=== PATIENT | female | born 1985 | race Hispanic/Latino ===

== ENCOUNTER 2018-09-30 10:15 | Inpatient (IN) | payer OTHER ==
[2018-09-30 11:08] VITALS: BMI 42.0
[2018-09-30] MEDS ORDERED: Calcium Gluc 4.6 MEQ/10 ML (100 MG/ML) SLOW IVP PRN (11:14)
[2018-09-30 12:27] LABS: #Eosinphils 0.2 thou/uL (0.0-0.7); #Lymphocytes 2.5 thou/uL (1.20-3.40); #Monocytes 0.7 thou/uL (0.11-0.59); #Neutrophils 7.9 thou/uL (1.40-6.50); %Basophils 0.2 % (0.0-1.0); %Eosinophils 1.8 % (0.0-10.0); %Lymphocytes 22.4 % (21.0-51.0); %Monocytes 6.1 % (0.0-10.0); %Neutrophils 69.6 % (42.0-75.0); Hemoglobin 13.1 g/dL (12.0-16.0); Mean Corpuscular HGB CONC 33.5 g/dL (32.0-36.0); Mean Corpuscular Hemoglobin 30.2 pg (27.0-31.0); Mean Corpuscular Volume 90.2 fL (78.0-98.0); Mean Platelet Volume 8.9 fL (7.4-10.4); Platelet Count 197 thou/uL (130-400); RBC Distribution Width 13.2 % (11.5-14.5); Red Blood Cell (RBC) Count 4.34 mill/uL (4.20-5.40); White Blood Cell (WBC) Count 11.3 thou/uL (4.8-10.8)
[2018-09-30 12:50] LABS: ALT (SGPT) 34 U/L (8-55); AST (SGOT) 41 U/L (5-34)
[2018-09-30] MEDS ORDERED: NIFEdipine XL 30 MG TAB PO SCH (13:30)
[2018-09-30] MEDS ORDERED: Labetalol 100 MG TAB PO SCH (16:00)
[2018-09-30] MEDS ORDERED: HumaLOG 300 UNITS/3 ML VIAL SC SCH (17:00)
[2018-09-30] MEDS ORDERED: NIFEdipine 10 MG CAP PO PRN (17:57)
[2018-09-30] MEDS ORDERED: Promethazine HCl 25 MG/ML VIAL IM PRN (18:07)
[2018-09-30] MEDS ORDERED: Ondansetron PF 4 MG/2 ML Vial IVP PRN (18:07)
[2018-09-30] MEDS ORDERED: Lactated Ringer's 1,000 ML IV SCH (18:15)
[2018-09-30 18:38] LABS: Hemoglobin 12.4 g/dL (12.0-16.0); Mean Corpuscular HGB CONC 34.3 g/dL (32.0-36.0); Mean Corpuscular Hemoglobin 31.1 pg (27.0-31.0); Mean Corpuscular Volume 90.5 fL (78.0-98.0); Platelet Count 176 thou/uL (130-400); RBC Distribution Width 13.2 % (11.5-14.5); Red Blood Cell (RBC) Count 3.99 mill/uL (4.20-5.40); White Blood Cell (WBC) Count 10.7 thou/uL (4.8-10.8)
[2018-09-30 19:18] LABS: HBSAg Index 0.23 S/CO (0-0.99); Hep B Surf Ag Non-Reactive S/CO (NonReactive); Syphilis Antibody Nonreactive (Nonreactive); Syphilis Antibody Index 0.04 S/CO (<1.00 Non-Reactive)
[2018-09-30] MEDS ORDERED: Insulin Glargine 60 UNITS in Pre-Filled Syringe 1 EACH SC SCH (21:00)
[2018-09-30] MEDS: HumaLOG 300 UNITS/3 ML VIAL SC SCH (21:30)
[2018-10-01] MEDS: Acetaminophen 325 MG TAB PO PRN ×2 (02:12→08:53)
[2018-10-01] MEDS ORDERED: NPH, Human Insulin Isophane 300 UNIT/3 ML VIAL SC SCH (07:30)
[2018-10-01] MEDS ORDERED: Insulin Glargine 65 UNITS in Pre-Filled Syringe 1 EACH SC SCH (09:00)
[2018-10-01] MEDS ORDERED: NIFEdipine XL 30 MG TAB PO SCH (09:00)
[2018-10-01] MEDS: HumaLOG 300 UNITS/3 ML VIAL SC SCH ×2 (09:29→20:02)
[2018-10-01] MEDS ORDERED: Dextrose 5%-Lactated Ringers 1,000 ML IV PRN (10:12)
[2018-10-01] MEDS ORDERED: Ketorolac Tromethamine 30 MG/ML VIAL ONE ×2 (11:43→15:55)
[2018-10-01] MEDS ORDERED: Ondansetron PF 4 MG/2 ML Vial ONE ×2 (11:43→15:55)
[2018-10-01] MEDS ORDERED: PHENYLEPHRINE-NS 100 MCG/ML 10 ML SYRINGE ONE ×2 (11:43→15:55)
[2018-10-01] MEDS: Hydrocortisone 1% Cream 30 GM TUBE TOP PRN ×2 (12:30→14:22)
[2018-10-01] MEDS ORDERED: CEFAZOLIN 2 GM/50 ML BAG ONE (15:30)
[2018-10-01] MEDS ORDERED: Bicitra 30 ML UDCUP ONE (15:30)
[2018-10-01] MEDS ORDERED: Morphine PF 1 MG/ML SYR ONE (15:55)
[2018-10-01] MEDS ORDERED: Bupivacaine 0.75% W/DEXTROSE 8.25% 2 ML AMP ONE (15:55)
[2018-10-01] MEDS ORDERED: Oxytocin 10 UNITS/ML VIAL ONE ×3 (15:56→17:27)
[2018-10-01] MEDS ORDERED: Lidocaine 2% 10 ML INJ ONE (15:58)
[2018-10-01] MEDS ORDERED: Dextrose 50% Abboject 50 ML SYRINGE ONE (15:58)
[2018-10-01] MEDS ORDERED: Dextrose 50% Abboject 50 ML SYRINGE SLOW IVP PRN ×2 (16:12→18:49)
[2018-10-01] MEDS ORDERED: L&D-Morphine 4 MG/ML VIAL SLOW IVP PRN (18:29)
[2018-10-01] MEDS ORDERED: HYDROmorphone 2 MG/ML VIAL SLOW IVP PRN (18:29)
[2018-10-01] MEDS ORDERED: Naloxone HCl 0.4 mg/ml Vial IV PRN (18:29)
[2018-10-01] MEDS ORDERED: Hydrocerin (Eucerin) Cream 120 gm Jar TOP PRN (18:29)
[2018-10-01] MEDS ORDERED: diphenhydrAMINE 50 MG/ML VIAL IVP PRN (18:29)
[2018-10-01] MEDS ORDERED: Ondansetron PF 4 MG/2 ML Vial IVP PRN ×2 (18:29→18:49)
[2018-10-01] MEDS ORDERED: Ketorolac Tromethamine 30 MG/ML VIAL IVP PRN (18:29)
[2018-10-01] MEDS ORDERED: Naloxone HCl 0.4 mg/ml Vial IVP PRN ×2 (18:29)
[2018-10-01] MEDS ORDERED: Meperidine HCl/PF 25 MG/ML VIAL SLOW IVP PRN (18:29)
[2018-10-01] MEDS ORDERED: Promethazine HCl 25 MG/ML VIAL IM PRN ×2 (18:29→18:49)
[2018-10-01] MEDS ORDERED: Ondansetron HCl/PF 4 MG/2 ML Vial IVP PRN (18:29)
[2018-10-01] MEDS ORDERED: Promethazine HCl 25 MG SUPP PR PRN (18:29)
[2018-10-01] MEDS ORDERED: Ketorolac Tromethamine 30 MG/ML VIAL IVP SCH (18:30)
[2018-10-01] MEDS ORDERED: Communication Order-Pharmacy FS SCH (18:30)
[2018-10-01] MEDS ORDERED: Lanolin Ointment 7 GM TUBE TOP PRN (18:49)
[2018-10-01] MEDS ORDERED: Adacel (T-DAP) 0.5 ML VIAL IM ONE (18:49)
[2018-10-01] MEDS ORDERED: diphenhydrAMINE 25 MG CAP PO PRN (18:49)
[2018-10-01] MEDS ORDERED: Dextrose 5% in Water 1,000 ML IV PRN (18:49)
[2018-10-01] MEDS ORDERED: Measles/Mumps/Rubella 10 MCG/0.5 ML VIAL SC ONE (18:49)
[2018-10-01] MEDS ORDERED: NS / Oxytocin 40 units/1000ml 1,000 ML IV SCH (19:00)
[2018-10-01] MEDS ORDERED: Meperidine HCl/PF 25 MG/ML VIAL ONE (20:25)
[2018-10-01] MEDS ORDERED: NIFEdipine 10 MG CAP ONE (20:26)
[2018-10-01] MEDS ORDERED: NIFEdipine 10 MG CAP PO SCH (20:30)
[2018-10-01] MEDS ORDERED: Labetalol 100 MG TAB PO SCH (22:30)
[2018-10-01] MEDS ORDERED: Dextrose 5 %-0.45 % NaCl 1,000 ML IV SCH (22:30)
[2018-10-01] MEDS: Insulin Glargine 30 UNITS in Pre-Filled Syringe SC SCH (22:36)
[2018-10-01] MEDS: Simethicone Chewable 80 MG TAB PO PRN (22:37)
[2018-10-01] MEDS: Docusate Calcium (SURFAK) 240 MG CAP PO SCH (22:38)
[2018-10-01] MEDS: Preparation H HC 1% Cream 26 GM TUBE TOP SCH (22:40)
[2018-10-01] MEDS: Ferrous Sulfate 325 MG TAB PO SCH (23:32)
[2018-10-02] MEDS ORDERED: Labetalol 100 MG TAB PO SCH (06:00)
[2018-10-02] MEDS ORDERED: Lactated Ringer's 500 ML IV SCH ×3 (06:30→07:00)
[2018-10-02] MEDS: Insulin Glargine 40 UNITS in Pre-Filled Syringe SC SCH (08:27)
[2018-10-02] MEDS: NIFEdipine XL 30 MG TAB PO SCH (08:28)
[2018-10-02] MEDS: Ferrous Sulfate 325 MG TAB PO SCH ×2 (08:28→21:43)
[2018-10-02] MEDS: Docusate Calcium (SURFAK) 240 MG CAP PO SCH ×2 (08:28→21:32)
[2018-10-02] MEDS: Prenatal Vitamin 1 TAB PO SCH (08:28)
[2018-10-02] MEDS: Preparation H HC 1% Cream 26 GM TUBE TOP SCH ×2 (08:29→21:57)
[2018-10-02] MEDS: HumaLOG 300 UNITS/3 ML VIAL SC SCH ×4 (09:04→18:20)
[2018-10-02] MEDS: HYDROcodone/Acetaminophen 5/325 mg Tablet PO PRN ×2 (10:40→18:18)
--- NOTE | 2018-10-02 11:37 | PRG ---
DATE OF PROCEDURE: 10/01/2018 I served as first line supervisor to a primary for Erika Zamorano, # is [id number]. PRIMARY SURGEON: Gauri Addison M.D. Please refer to her operative note for complete details.
[2018-10-02] MEDS: Ibuprofen 800 MG TAB PO SCH ×2 (14:26→21:32)
[2018-10-02] MEDS: Simethicone Chewable 80 MG TAB PO PRN (15:49)
[2018-10-02] MEDS: Insulin Glargine 30 UNITS in Pre-Filled Syringe SC SCH (21:32)
[2018-10-03] MEDS: HYDROcodone/Acetaminophen 5/325 mg Tablet PO PRN ×2 (05:27→21:00)
[2018-10-03] MEDS: Ibuprofen 800 MG TAB PO SCH ×3 (05:58→21:00)
[2018-10-03] MEDS: Ferrous Sulfate 325 MG TAB PO SCH ×2 (08:14→23:12)
[2018-10-03] MEDS: NIFEdipine XL 30 MG TAB PO SCH (08:41)
[2018-10-03] MEDS: Preparation H HC 1% Cream 26 GM TUBE TOP SCH ×2 (08:42→21:01)
[2018-10-03] MEDS: Prenatal Vitamin 1 TAB PO SCH (08:42)
[2018-10-03] MEDS: Docusate Calcium (SURFAK) 240 MG CAP PO SCH ×2 (08:42→20:59)
[2018-10-03] MEDS: HumaLOG 300 UNITS/3 ML VIAL SC SCH ×3 (08:42→18:00)
[2018-10-03] MEDS: Insulin Glargine 40 UNITS in Pre-Filled Syringe SC SCH (08:43)
[2018-10-03] MEDS ORDERED: HumaLOG 300 UNITS/3 ML VIAL SC SCH (20:45)
[2018-10-03] MEDS: Insulin Glargine 30 UNITS in Pre-Filled Syringe SC SCH (20:58)
[2018-10-03] MEDS: Simethicone Chewable 80 MG TAB PO PRN (20:59)
[2018-10-04] MEDS: HYDROcodone/Acetaminophen 5/325 mg Tablet PO PRN ×3 (03:18→23:11)
[2018-10-04] MEDS: Ibuprofen 800 MG TAB PO SCH ×3 (05:44→21:35)
[2018-10-04] MEDS: Prenatal Vitamin 1 TAB PO SCH (08:37)
[2018-10-04] MEDS: HumaLOG 300 UNITS/3 ML VIAL SC SCH ×3 (08:37→19:21)
[2018-10-04] MEDS: NIFEdipine XL 30 MG TAB PO SCH (08:37)
[2018-10-04] MEDS: Docusate Calcium (SURFAK) 240 MG CAP PO SCH ×2 (08:37→21:34)
[2018-10-04] MEDS: Preparation H HC 1% Cream 26 GM TUBE TOP SCH ×2 (08:38→21:41)
[2018-10-04] MEDS: Insulin Glargine 40 UNITS in Pre-Filled Syringe SC SCH (08:38)
[2018-10-04] MEDS ORDERED: Labetalol 100 MG TAB PO SCH (09:00)
[2018-10-04] MEDS: Ferrous Sulfate 325 MG TAB PO SCH ×2 (09:14→23:19)
[2018-10-04] MEDS: Simethicone Chewable 80 MG TAB PO PRN (14:11)
[2018-10-04] MEDS ORDERED: HumaLOG 300 UNITS/3 ML VIAL SC SCH ×2 (17:00→19:15)
[2018-10-04] MEDS: Insulin Glargine 30 UNITS in Pre-Filled Syringe SC SCH (21:35)
[2018-10-04] MEDS: Labetalol 100 MG TAB PO SCH (21:40)
[2018-10-05] MEDS: Ibuprofen 800 MG TAB PO SCH ×2 (05:54→13:10)
[2018-10-05] MEDS: Docusate Calcium (SURFAK) 240 MG CAP PO SCH (08:26)
[2018-10-05] MEDS: Prenatal Vitamin 1 TAB PO SCH (08:26)
[2018-10-05] MEDS: NIFEdipine XL 30 MG TAB PO SCH (08:26)
[2018-10-05] MEDS: Labetalol 100 MG TAB PO SCH (08:26)
[2018-10-05] MEDS: HumaLOG 300 UNITS/3 ML VIAL SC SCH ×3 (08:27→18:13)
[2018-10-05] MEDS ORDERED: Insulin Glargine 50 UNITS in Pre-Filled Syringe 1 EACH SC SCH (09:00)
[2018-10-05] MEDS: Ferrous Sulfate 325 MG TAB PO SCH (09:07)
[2018-10-05] MEDS: Preparation H HC 1% Cream 26 GM TUBE TOP SCH (09:07)
[2018-10-05] MEDS: HYDROcodone/Acetaminophen 5/325 mg Tablet PO PRN (13:10)
[2018-10-05 17:37] VITALS: BP 156/80; TEMP 98.2
--- NOTE | 2018-10-07 11:44 | OP ---
DATE OF PROCEDURE: 09/30/2018 PREOPERATIVE DIAGNOSES: 1. A 33-year-old female G1 with a history of pregestational diabetes, uncontrolled. 2. History of chronic hypertension. 3. Fetus large for gestational age. 4. Prematurity. 5. Suspected pelvic inlet disproportion. POSTOPERATIVE DIAGNOSES: 1. A 33-year-old female G1 with a history of pregestational diabetes, uncontrolled. 2. History of chronic hypertension. 3. Fetus large for gestational age. 4. Prematurity. 5. Suspected pelvic inlet disproportion. 6. Vacuum assist low transverse section delivery at 35 weeks and 1 day. 7. Liveborn male with Apgars of 9 and 9 at 1 and 5 minutes respectively, weighing 8 pounds 13 ounces . CLINICAL HISTORY: This patient is a 33-year-old female G1 who presented to my office origin [facility] in the first trimester with a concern for . The patient was under the impression that she could not get . Her primary care physician sent her for evaluation as soon as possible g iven her uncontrolled pregestational diabetes. The patient was frequently seen and counseled, her in sulin regimen was adjusted. She was on Lantus twice daily and rather large doses with NovoLog insuli n given with each meal. The patient also was asked to test 4 times a day with fasting and 1 hour pos tprandials x3. She was compliant with her appointments; however, was noncompliant and had moderate c ontrol throughout her with diet. The patient was seen the day prior to delivery and was se nt from the office to the Labor and Delivery for observation given her elevation in blood pressure to severe range. The patient had been doing NSTs and frequent twice weekly appointments. She had a kn own proteinuria at baseline with her pregestational diabetes. She was monitored and had a reassuring heart tracing; however, her pressures continued to stay in the moderate to severe range. She was given several doses of labetalol and Procardia and was made n.p.o. after midnight for planned del erik the following day. The risks, benefits and possible complications as well as alternatives were discussed with the patient and the neonatology team was notified. The patient was set for delivery at 5:00 p.m. at the end of the day for the scheduled delivery. She was made aware of the concerns fo r using steroids for lung prematurity and control of her diabetes with steroid administration. Steroids were not given. After this discussion and the patient was set for a delivery. DETAILS OF PROCEDURE: The patient was taken to the operating room where spinal anesthesia was obtain ed. She was laid in the supine position with a leftward tilt. Doptones were obtained and noted to b e appropriate. She was prepped and draped in the usual sterile fashion. It was of note that she had a contact dermatitis over her abdomen prior to the solution being applied. Once she was prepped and draped in the usual sterile fashion and tested for adequate anesthesia, an incision was made in the lower abdomen in a Pfannenstiel manner and this was carried down to her fascia. The fascia was then nicked in the midline and the incision was extended bilaterally. The Krysten clamps were used x2 to e levate the fascia superiorly to make room for an expected large fetus. The same was done with the po sterior edge where the fascia was elevated from the rectus and pyramidalis muscles. The pyramidalis muscles were then elevated and the rectus and pyramidalis muscles were in the midline. The peritoneum was then identified and breeched with the use of mosquito clamps to elevate this layer an d then opening the sharp and blunt dissection. Once this was achieved, further dissection was perfor med to make room for the fetus. The bladder blade was then placed after the bladder flap was created and the bladder was reflected even further down. The incision on the uterus was then made in the lo wer uterine segment and once the amnion was visualized, amniotomy was performed with clear fluid. Th e pressure was then placed after the surgeon's hand was placed inside the abdomen and into the uterus to guide the head towards the incision. It was noted then that a vacuum assist was going to be nece ssary. The vacuum was then placed once the pressure was relieved and after good placement. The vacu um was used to help deliver the vertex through the incision. Once the head was delivered, the anterior shoulder followed by the posterior shoulder, followed by the remainder of the infant's body was delivered. The cord was doubly clamped and cut and the infant was sent over to the neonatology t ea in attendance to the delivery. A cord blood was obtained and the placenta was then delivered man ually intact with a 3-vessel cord. The uterus was then exteriorized and cleansed of all debris and 2 -layered closure was performed with running locking 0 Vicryl suture with excellent hemostasis. The b ladder flap was then reapproximated over this incision and the gutters were cleansed of all debris. When noting, the pelvic anatomy was noted that the patient had a narrow pelvis and we are not have de livered vaginally given the narrow pelvic inlet. She also had normal adnexal structures. Seprafilm was then placed on the anterior surface of the uterine closure and then the uterus was placed back in to the abdomen. The peritoneal edges were grasped with two Faiza clamps and those were closed in a r unning fashion with a 3-0 suture. The rectus muscles were then reapproximated with interrupted figur e-of-eight sutures and the prefascial gutters were cleansed of all debris. The fascia was then close d in a running fashion locking at the initial anchoring suture as well as in the midline and then bur oglden the knot in the fascia. The subcutaneous tissue was then copiously irrigated and bleeding was c orrected with Bovie cautery. The subcutaneous tissues were then closed in multiple layers to make posadas re that there was adequate closure of the space and the incision was then closed with a 4-0 Keit h needle and reinforced with Steri-Strips and Mastisol. A pressure dressing was placed over this wit h a Tegaderm and Telfa pad and 4 x 4s folded. The patient tolerated the procedure well. All needle, sponge, lap, and instrument counts were correct x2 at the end. SURGEON: Gauri Addison M.D. FOUNDATION ASSISTANT: Dr. Ventura Mendoza. ESTIMATED BLOOD LOSS: 750 mL. Quantitative blood loss was measured at 976 mL. The patient was sent to her recovery room in satisfactory condition and her baby was monitored in the NICU. Again, this was a liveborn male at 35 weeks and 1 day, weighing 8 pounds 13 ounces with s of 9 and 9 at 1 and 5 minutes respectively. There were no other issues surrounding this delivery. The patient continued on her insulin modified regimen as well as her blood pressure medications for continued maintenance of her chronic diseases.
== END 2018-10-05 18:45 | disposition home or self-care (01) | DRG 786 ==
LOC: L&D/OP 10:15 → L&D 18:32 → 3SW 10-01 21:13
PROVIDERS: ADMIT Obstetrics & Gynecology; ATTEND Obstetrics & Gynecology
PROC: 10D00Z1 Extraction of Products of Conception, Low, Open Approach (ICD-10-PCS; principal; 2018-10-01)
DX: O33.5XX0 Maternal care for disproportion due to unusually large fetus, not applicable or unspecified (principal); O24.12 Pre-existing type 2 diabetes mellitus, in childbirth; O10.02 Pre-existing essential hypertension complicating childbirth; Z37.0 Single live birth; E11.65 Type 2 diabetes mellitus with hyperglycemia; O69.81X0 Labor and delivery complicated by cord around neck, without compression, not applicable or unspecified; Z3A.35 35 weeks gestation of pregnancy; Z79.4 Long term (current) use of insulin; Z79.899 Other long term (current) drug therapy
CPT/HCPCS: 36415; 36416; 51702; 59025; 81003; 82239; 84450; 84460; 85025; 86780; 86850; 86900; 86901; 87340; 90707; 90715; 99285; J1815; J1885; J2175; J2274; J2405; J2590; J3490

== ENCOUNTER 2019-04-13 07:41 | Emergency (ER) | payer OTHER, SELFPAY ==
[2019-04-13 08:31] LABS: Bilirubin Negative (Negative); Blood, Urine Large (Negative); Clarity CLOUDY (Clear); Glucose, Urine (Dipstick) >=1000 mg/dL (Negative); Leukocyte Moderate (Negative); Nitrite Positive (Negative); Protein, Urine (Dipstick) 100 mg/dL (Neg-Trace); Specific Gravity, Urine 1.039 (1.002-1.036); Urobilinogen 0.2 mg/dL (0.2-1.0)
[2019-04-13 08:33] LABS: Bacteria/HPF 4+ HPF (None Seen); Hyaline Casts/LPF 0-3 HYALINE CAST LPF (0-3 Hyaline); Pathc Cast-AUWi Flag 0.53 (0-2.49); Squamous Epithelial 0-3 HPF (0-3)
[2019-04-13 08:34] LABS: #Eosinphils 0.2 thou/uL (0.0-0.7); #Lymphocytes 2.1 thou/uL (1.20-3.40); #Monocytes 0.8 thou/uL (0.11-0.59); %Basophils 0.1 % (0.0-1.0); %Eosinophils 1.9 % (0.0-10.0); %Lymphocytes 17.4 % (21.0-51.0); %Monocytes 6.4 % (0.0-10.0); %Neutrophils 74.3 % (42.0-75.0); Hemoglobin 14.4 g/dL (12.0-16.0); Mean Corpuscular HGB CONC 35.6 g/dL (32.0-36.0); Mean Corpuscular Hemoglobin 30.5 pg (27.0-31.0); Mean Corpuscular Volume 85.6 fL (78.0-98.0); Mean Platelet Volume 8.5 fL (7.4-10.4); Platelet Count 233 thou/uL (130-400); Red Blood Cell (RBC) Count 4.73 mill/uL (4.20-5.40); White Blood Cell (WBC) Count 12.2 thou/uL (4.8-10.8)
[2019-04-13] MEDS ORDERED: Acetaminophen 500 MG TAB ONE (08:36)
[2019-04-13] MEDS ORDERED: Ondansetron ODT 4 MG TAB ONE (08:36)
[2019-04-13 08:40] LABS: Yeast-AUWi Flag 177.6 (0-25.0)
[2019-04-13 08:42] LABS: Pregnancy Test - Urine (BHCG) Negative (Negative); Pregu Control Background? CLEAR/WHITE (CLR/WHITE); Pregu Control Bar Appear? YES (CONTROL BAR); Specific Gravity 1.039 (1.002-1.036)
[2019-04-13 08:51] LABS: Yeast-All Forms Rare HPF (None Seen)
[2019-04-13 08:55] LABS: ALT (SGPT) 74 U/L (8-55); AST (SGOT) 38 U/L (5-34); Albumin 4.2 g/dL (3.5-5.0); Alkaline Phosphatase 126 U/L (40-150); Anion Gap 14 mmol/L (10-20); BUN (Urea Nitrogen) 9 mg/dL (7.0-18.7); Bilirubin, Total 0.7 mg/dL (0.2-1.2); Calc. Creatinine Clearance 0 mL/min (70-130); Calcium 9.4 mg/dL (7.8-10.44); Carbon Dioxide 22 mmol/L (22-29); Chloride 96 mmol/L (98-107); Estimated GFR-MDRD 84; Globulin 3.2 g/dL (2.4-3.5); Glucose 366 mg/dL (70-105); Lipase 10 U/L (8-78); Potassium 4.2 mmol/L (3.5-5.1); Protein, Total 7.4 g/dL (6.0-8.3); Sodium 128 mmol/L (136-145)
== END 2019-04-13 09:55 | disposition home or self-care (01) ==
LOC: ERS 07:41
DX: N12 Tubulo-interstitial nephritis, not specified as acute or chronic (principal)
CPT/HCPCS: 36415; 80053; 81003; 81015; 81025; 83690; 85025; 87077; 87086; 87186; 99284; Q0162

== ENCOUNTER 2019-05-09 21:34 | Emergency (ER) | payer SELFPAY ==
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
== END 2019-05-09 22:44 | disposition home or self-care (01) ==
LOC: ERS 21:34
DX: S60.211A Contusion of right wrist, initial encounter (principal); S20.219A Contusion of unspecified front wall of thorax, initial encounter; I10 Essential (primary) hypertension; E11.9 Type 2 diabetes mellitus without complications; Z79.4 Long term (current) use of insulin; V89.2XXA Person injured in unspecified motor-vehicle accident, traffic, initial encounter
CPT/HCPCS: 71045

== ENCOUNTER 2019-08-18 10:12 | Day surgery (SDC) | payer OTHER ==
[2019-08-17 14:45] VITALS: BMI 36.8
[~2019-08-18 10:12] MED LIST: EPINEPHrine 0.3 MG, Dextrose 50% 3 ML in Ophthalmic Irrigation Solution 500 ML IV SCH
[2019-08-18] MEDS ORDERED: Cyclopentolate 1% Opth Drop 2 ML BOT ONE (10:39)
[2019-08-18] MEDS ORDERED: Phenylephrine 2.5% Ophth Soln 5 ML BOT ONE (10:39)
[2019-08-18] MEDS ORDERED: Midazolam HCl 2 mg/2 ml Vial ONE (10:51)
[2019-08-18 11:14] LABS: Pregnancy Test - Urine (BHCG) Negative (Negative); Pregu Control Background? CLEAR/WHITE (CLR/WHITE); Pregu Control Bar Appear? YES (CONTROL BAR); Specific Gravity 1.026 (1.002-1.036)
[2019-08-18] MEDS ORDERED: PROPOFOL 200 MG/20 ML VIAL ONE (13:54)
[2019-08-18] MEDS ORDERED: Triamcinolone 40 MG/ML VIAL ONE (13:54)
[2019-08-18] MEDS ORDERED: CEFAZOLIN 1 GM VIAL ONE (13:54)
[2019-08-18] MEDS ORDERED: Lidocaine 4% PF 5 ML AMP ONE (13:54)
[2019-08-18] MEDS ORDERED: Bupivacaine PF 0.75% SDV 10 ML ONE (13:54)
[2019-08-18] MEDS ORDERED: Lidocaine 1% PF 5 ML VIAL ONE ×2 (13:54)
[2019-08-18] MEDS ORDERED: Tobramycin/Dexamethasone Ophth Oint 3.5 GM TUBE ONE (13:54)
[2019-08-18] MEDS ORDERED: Fentanyl 100 MCG/2 ML VIAL ONE (15:33)
--- NOTE | 2019-08-18 20:14 | OP ---
DATE OF PROCEDURE: 08/18/2019 PREOPERATIVE DIAGNOSIS: Macula involving tractional retinal detachment, right eye. POSTOPERATIVE DIAGNOSIS: Macula involving tractional retinal detachment, right eye. PROCEDURES PERFORMED: 1. 125-gauge pars plana vitrectomy, right eye. 2. Tractional retinal detachment repair, right eye. 3. Endolaser panretinal photocoagulation, right eye. ESTIMATED BLOOD LOSS: None. SPECIMEN REMOVED: None. COMPLICATIONS: None. ANESTHESIA: MAC with retrobulbar block. SUMMARY OF OPERATION: The patient was identified in preoperative holding area. The correct eye being the right eye was marked for surgery. The patient was taken to the operating room, where MAC anesthesia was induced. A retrobulbar block was administered to the right eye. The block consisted of 1 :1 ratio of 4% lidocaine, 0.75% Marcaine. A total of 5 mL was administered. The right eye was then prepped and draped in the usual sterile ophthalmic fashion for surgery. A wire lid speculum was placed. A standard 25-gauge pars plana vitrectomy platform was fashioned with trocars placed approximately 4 mm from the limbus. The infusion was noted to be within the vitreous cavity prior to being turned onto infusion pressure of 30 mmHg. The light pipe Micro vitrector was introduced in the eye under visualization with a BIOM viewing system. A careful core and peripheral shave vitrectomy were performed. The anterior-posterior traction from the vitreous was relieved to the greatest extent possible. Attention was then turned to the tractional retinal detachment. The traction was delaminated and segmented with the use of the Micro vitrector. Extensive tractional retinal detachment was noted on the inferotemporal arcade. This tractional retinal detachment and subretinal fluid extended into the inferior portion of the macula involving the fovea. Inferonasal tractional retinal detachment was additionally noted. This area was again delaminated and segmented with use of the Micro vitrector. Following release of traction, significant relaxation of the macula of the retina was noted. No defects were noted during the process of the surgery. The decision was made to leave the eye under BSS. Panretinal photocoagulation was placed anterior to the preexisting PRP. This was done with endolaser. Following Endolaser, the cannulas were sequentially removed. All sclerotomies were noted to be watertight. Subconjunctival Ancef and Kenalog were injected. The wire lid speculum was removed followed by application of TobraDex ophthalmic ointment and a light patch and shield. The patient tolerated the procedure well and was taken to outpatient recovery area in good condition. Job ID: [id number] MTDD
== END 2019-08-18 14:10 | disposition home or self-care (01) ==
LOC: SDC 10:12
PROVIDERS: ATTEND Ophthalmology Retina Specialist
PROC: 08T43ZZ Resection of Right Vitreous, Percutaneous Approach (ICD-10-PCS; principal; 2019-08-18)
DX: H33.41 Traction detachment of retina, right eye (principal)
CPT/HCPCS: 36416; 81025; J0171; J0690; J2001; J2250; J2704; J3010; J3301; J3490

== ENCOUNTER 2020-05-10 18:34 | Emergency (ER) | payer OTHER | END 2020-05-10 19:50 | disposition home or self-care (01) | LOC: ERS 18:34 | DX: Z20.828 Contact with and (suspected) exposure to other viral communicable diseases (principal); I10 Essential (primary) hypertension; E11.9 Type 2 diabetes mellitus without complications; Z79.4 Long term (current) use of insulin; Z79.899 Other long term (current) drug therapy | CPT/HCPCS: 87635; 99283; U0003 ==

== ENCOUNTER 2020-10-04 06:14 | Outpatient (CLI) | payer OTHER ==
[2020-10-04 22:57] LABS: SARS-CoV-2 MS2 Positive; SARS-CoV-2 N Gene Negative; SARS-CoV-2 S Gene Negative; SARS-CoV-2 by NAA Not Detected (NotDetected); SARS-CoV-2 orf1ab Negative
== END 2020-10-04 06:15 | disposition home or self-care (01) ==
LOC: LABBT 06:14
PROVIDERS: ATTEND Ophthalmology Retina Specialist
DX: Z01.812 Encounter for preprocedural laboratory examination (principal); Z20.828 Contact with and (suspected) exposure to other viral communicable diseases; H54.7 Unspecified visual loss; H33.41 Traction detachment of retina, right eye
CPT/HCPCS: 87635; U0003

== ENCOUNTER 2020-10-09 08:49 | Day surgery (SDC) | payer OTHER ==
[2020-10-08 09:50] VITALS: BMI 36.0
[~2020-10-09 08:49] MED LIST changes: +EPINEPHrine 0.3 MG in Ophthalmic Irrigation Solution 500 ML IRR SCH; -EPINEPHrine 0.3 MG, Dextrose 50% 3 ML in Ophthalmic Irrigation Solution 500 ML IV SCH
[2020-10-09] MEDS ORDERED: Bupivacaine PF 0.75% SDV 10 ML ONE (09:43)
[2020-10-09] MEDS ORDERED: Metoclopramide HCl 10 MG/2 ML VIAL ONE (09:43)
[2020-10-09] MEDS ORDERED: Ondansetron PF 4 MG/2 ML Vial ONE (09:43)
[2020-10-09] MEDS ORDERED: PHENYLEPHRINE-NS 100 MCG/ML 10 ML SYRINGE ONE (09:43)
[2020-10-09] MEDS ORDERED: Maxitrol 0.1% Opth Oint 3.5 GM TUBE ONE (09:43)
[2020-10-09] MEDS ORDERED: Triamcinolone 40 MG/ML VIAL ONE (09:43)
[2020-10-09] MEDS ORDERED: Lidocaine 1% PF 5 ML VIAL ONE (09:43)
[2020-10-09] MEDS ORDERED: CEFAZOLIN 1 GM VIAL ONE (09:43)
[2020-10-09] MEDS ORDERED: Lidocaine 4% PF 5 ML AMP ONE (09:43)
[2020-10-09 09:51] LABS: BHCG - Serum Negative (NEGATIVE); Pregs Control Background? CLEAR/WHITE (CLR/WHITE); Pregs Control Bar Appear? YES (CONTROL BAR)
[2020-10-09] MEDS ORDERED: Phenylephrine 2.5% Ophth Soln 5 ML BOT ONE (09:53)
[2020-10-09] MEDS ORDERED: Cyclopentolate 1% Opth Drop 2 ML BOT ONE (09:53)
[2020-10-09] MEDS ORDERED: Fentanyl 100 MCG/2 ML VIAL ONE (09:57)
[2020-10-09] MEDS ORDERED: PROPOFOL 20 ML ONE (09:57)
[2020-10-09] MEDS ORDERED: Midazolam HCl 2 mg/2 ml Vial ONE (09:57)
[2020-10-09] MEDS ORDERED: Glycopyrrolate 0.2 MG/ML 5 ML SYRINGE ONE (09:57)
[2020-10-09] MEDS ORDERED: HYDROcodone/Acetaminophen 5/325 mg Tablet ONE (12:11)
--- NOTE | 2020-10-09 12:34 | OP ---
DATE OF PROCEDURE: 10/09/2020 PRINCIPAL PREOPERATIVE DIAGNOSES: 1. Macula off tractional retinal detachment. 2. Proliferative diabetic retinopathy, right eye. POSTOPERATIVE DIAGNOSES: 1. Macula off tractional retinal detachment. 2. Proliferative diabetic retinopathy, right eye. PROCEDURES PERFORMED: 1. 25-gauge pars plana vitrectomy, right eye. 2. Tractional retinal detachment repair, right eye. 3. Endolaser, right eye. 4. Silicone oil fill, right eye. ESTIMATED BLOOD LOSS: None. SPECIMENS REMOVED: None. COMPLICATIONS: None. ANESTHESIA: TIVA with sub-Tenon's block, converted to LMA. DESCRIPTION OF PROCEDURE: The patient was identified in the preoperative holding area. The correct eye being the right eye was marked for surgery. The patient was taken to the operating room, where MAC anesthesia was induced. The right eye was prepped and draped in the usual sterile ophthalmic fashion for surgery. A wire-clip lid speculum was placed. An inferonasal conjunctival peritomy was fashioned with Mitchell scissors for administration of sub-Tenon's block. During this process, the patient became significantly agitated and restless, and the decision was made to convert to LMA. Following completion of the LMA, a sub-Tenon's block was administered. The block consisted of 1:1 ratio of 4% lidocaine and 0.75% Marcaine. Total of 5 mL was administered. A standard 25-gauge pars plana vitrectomy platform was fashioned with trocars placed approximately 4 mm from the limbus. The infusion was noted to be within the vitreous cavity prior to being turned on to an infusion pressure of 30 mmHg. The light pipe and microvitrector were introduced in the eye under visualization of the BIOM viewing system. A limited peripheral shave vitrectomy was performed in this previously vitrectomized eye. A macula off inferior tractional retinal detachment was noted from approximately 4 o'clock to 8 o'clock. Diffuse fibrosis was noted along the inferior macula. The fibrosis was gently removed with the use of the Timmy MaxGrip forceps. However, following removal of significant portions of fibrosis, an air-fluid exchange was performed, which did not allow for complete flattening of the inferior retina. The decision was made to refill the eye with BSS and to perform inferior retinectomy. The retinectomy extended from approximately 4 o'clock to 8 o'clock, approximately 2 to 3 disc diameters inferior to the inferotemporal arcade vessels. Following completion of the retinectomy, which was created with the endocautery followed by opening with the microvitrector, another air-fluid exchange was performed, which allowed for complete flattening of the retina. Panretinal photocoagulation was placed posterior to the preexisting laser. Additionally, the retinectomy and inferotemporal retinotomy were with laser. Following Endolaser, the flute needle was reintroduced in the eye to remove any residual subretinal fluid. A complete silicone oil fill was subsequently achieved. The cannulas were sequentially removed and all sclerotomies were sutured with 8-0 Vicryl suture. Following suturing, all sclerotomies were noted to be oil tight. Subconjunctival Ancef and Kenalog were injected. The wire-clip lid speculum was removed followed by application of TobraDex ophthalmic ointment and a light patch and shield. The patient tolerated the procedure well and was taken to outpatient recovery area in good condition. Job ID: [id number]
== END 2020-10-09 13:25 | disposition home or self-care (01) ==
LOC: SDC 08:49
PROVIDERS: ATTEND Ophthalmology Retina Specialist
PROC: 08T43ZZ Resection of Right Vitreous, Percutaneous Approach (ICD-10-PCS; principal; 2020-10-09)
DX: E11.3531 Type 2 diabetes mellitus with proliferative diabetic retinopathy with traction retinal detachment not involving the macula, right eye (principal); Z79.4 Long term (current) use of insulin; Z79.899 Other long term (current) drug therapy
CPT/HCPCS: 36416; 84703; C1814; J0171; J0690; J2001; J2250; J2405; J2704; J2765; J3010; J3301; J3490

== ENCOUNTER 2021-01-29 09:42 | Day surgery (SDC) | payer OTHER ==
[2021-01-28 11:51] VITALS: BMI 36.0
[~2021-01-29 09:42] MED LIST changes: +Bupivacaine PF 0.75% SDV 10 ML ONE; +CEFAZOLIN 1 GM VIAL ONE; +Fentanyl 100 MCG/2 ML VIAL ONE; +Indocyanine Green 25 MG/10 ML VIAL ONE; +Lidocaine 1% PF 5 ML VIAL ONE; +Lidocaine 4% PF 5 ML AMP ONE; +Maxitrol 0.1% Opth Oint 3.5 GM TUBE ONE; +Midazolam HCl 2 mg/2 ml Vial ONE; +PROPOFOL 200 MG/20 ML VIAL ONE; +Triamcinolone 40 MG/ML VIAL ONE
[2021-01-29] MEDS ORDERED: Cyclopentolate 1% Opth Drop 2 ML BOT ONE (09:56)
[2021-01-29] MEDS ORDERED: Phenylephrine 2.5% Ophth Soln 5 ML BOT ONE (09:57)
[2021-01-29] MEDS ORDERED: Acetaminophen 500 MG TAB ONE (12:17)
== END 2021-01-29 12:45 | disposition home or self-care (01) ==
LOC: SDC 09:42
PROVIDERS: ATTEND Ophthalmology Retina Specialist
PROC: 08NE3ZZ Release Right Retina, Percutaneous Approach (ICD-10-PCS; principal; 2021-01-29)
PROC: 08T43ZZ Resection of Right Vitreous, Percutaneous Approach (ICD-10-PCS; principal; 2021-01-29)
DX: H35.371 Puckering of macula, right eye (principal); Z79.4 Long term (current) use of insulin; Z79.899 Other long term (current) drug therapy
CPT/HCPCS: 36416; J0171; J0690; J2250; J2704; J3010; J3301; J3490